=== PATIENT | male | born 1975 | race Caucasian/White ===

== ENCOUNTER 2024-07-28 06:25 | Day surgery (SDC) | payer BC, SELFPAY ==
[2024-07-28 08:30] VITALS: BMI 51.5
[2024-07-28 08:40] VITALS: BP 138/78
[2024-07-28 09:07] LABS: Glucose - Point of Care 106 mg/dl (70-99)
[2024-07-28 10:42] VITALS: BP 138/83
[2024-07-28 10:45] VITALS: BP 139/92
[2024-07-28 11:00] VITALS: BP 153/93
== END 2024-07-28 11:15 | disposition home or self-care (01) ==
LOC: SDS 06:25
PROVIDERS: ATTENDING PHYSICIAN Internal Medicine Gastroenterology
DX: Z12.11 Encounter for screening for malignant neoplasm of colon (principal); D12.3 Benign neoplasm of transverse colon; D12.8 Benign neoplasm of rectum; K64.8 Other hemorrhoids; K29.70 Gastritis, unspecified, without bleeding; K31.7 Polyp of stomach and duodenum; Z83.719 Family history of colon polyps, unspecified; Z80.0 Family history of malignant neoplasm of digestive organs
CPT/HCPCS: 45385; 45380; 43239; 88305; 82962; 88342